=== PATIENT | female | born 1965 | race Two or more races ===

== ENCOUNTER 2022-12-28 17:42 | Emergency (ER) | payer OTHER ==
[~2022-12-28] VITALS: Ht 157.5 cm; Wt 63.0 kg
--- NOTE | 2022-12-28 17:55 | NUR ---
[id number] home, called therapist voicing suicidal ideation. admits to ETOH and taking prescribed anxiety meds. PLACED IN BED, AAOX4, CALM- COOPERATIVE, DENIES HURTING HERSELF, NO SI. WILL CONTINUE TO MONITOR.
--- NOTE | 2022-12-28 18:00 | NUR ---
ASSEMBLER CARDS AND ANNOUNCEMENTS.AT BEDSIDE
--- NOTE | 2022-12-28 18:15 | NUR ---
REQUEST TO FAX HOLD TO [phone] IF 0684 HOLD IS COMPLETED & SUBMITTED BY PD.
--- NOTE | 2022-12-28 18:25 | NUR ---
SWAB FOR COVID19 SENT TO LAB
--- NOTE | 2022-12-28 18:45 | NUR ---
urine sample obtained sent to lab
--- NOTE | 2022-12-28 18:47 | NUR ---
PATIENT ON HOLD 5150 DANGER TO SELF- FORMS FILLED AND SIGNED BY [employer] OFFICER.
[2022-12-28 18:54] LABS: CALCIUM, SERUM 9.6 mg/dL (8.5-10.1); CREATININE 0.7 mg/dL (0.6-1.3); POTASSIUM 3.2 mmol/L (3.5-5.1)
[2022-12-28 19:01] LABS: ALBUMIN 4.3 g/dL (3.4-5.0); BILIRUBIN,DIRECT 0.1 mg/dL (0.0-0.2); BILIRUBIN,TOTAL 0.2 mg/dL (0.2-1.0); TOTAL PROTEIN, SERUM 8.8 g/dL (6.4-8.2)
[2022-12-28 19:20] LABS: BILIRUBIN,URINE NEGATIVE (NEGATIVE); COLOR,URINE YELLOW (YELLOW); LEUKOCYTE ESTERASE ,URINE NEGATIVE (NEGATIVE); NITRITE, URINE NEGATIVE (NEGATIVE); PH,URINE 6.5 (5.0-8.0); PROTEIN,URINE NEGATIVE (NEGATIVE); UGLUCOSE NEGATIVE (NEGATIVE); UROBILINOGEN,URINE 0.2 EU/dL (0.2)
[2022-12-28] MEDS ORDERED: POTASSIUM CHLORIDE 20 MEQ POWDER PACKET ONE (19:28)
[2022-12-28] MEDS ORDERED: POTASSIUM CHLORIDE 20 MEQ POWDER PACKET PO ONE (19:30)
[2022-12-28 20:09] LABS: BACTERIA,URINE None seen /HPF (None Seen); WBC,URINE 0-2 /HPF (0-3)
[2022-12-28 20:19] LABS: BASOPHILS % (AUTO) 0.7 % (0.0-2.0); EOSINOPHILS % (AUTO) 2.3 % (0.0-6.0); HEMATOCRIT 43 % (33-45); HEMOGLOBIN 14.3 g/dL (11.5-14.8); LYMPHOCYTES # (AUTO) 2.6 K/uL (0.8-4.8); LYMPHOCYTES % (AUTO) 37.2 % (20.0-44.0); MEAN CORPUSCULAR HGB CONC 33 g/dl (31.0-36.0); MEAN CORPUSCULAR VOLUME 91 fL (82-100); MONOCYTES # (AUTO) 0.5 K/uL (0.1-1.30); MONOCYTES % (AUTO) 7.1 % (2.0-12.0); NEUTROPHILS # (AUTO) 3.7 K/uL (1.8-8.9); NEUTROPHILS % (AUTO) 52.7 % (43.0-81.0); PLATELET COUNT (AUTO) 208 K/uL (150-450); RED BLOOD CELL COUNT(AUTO) 4.75 MIL/uL (4.0-5.2); WHITE BLOOD COUNT (AUTO) 7.1 K/uL (4.3-11.0)
--- NOTE | 2022-12-28 23:30 | NUR ---
RECEIVED PATIENT ASLEEP BUT AROUSABLE. PATIENT'S VITALS WITHIN NORMAL LIMITS. STILL PLACED ON 5150 HOLD.
--- NOTE | 2022-12-29 03:40 | NUR ---
PT AMBULATED TO RESTROOM; VOIDED X1
--- NOTE | 2022-12-29 05:33 | NUR ---
CRISIS CARROTING MACHINE OPERATOR, Henri SANCHEZ/ MOP MACHINE OPERATOR AT BEDSIDE
--- NOTE | 2022-12-29 07:17 | NUR ---
PT OK TO DISCHARGE PER DR PHAN. Patient discharged to home in stable condition. Written and verbal after care instructions given. Patient verbalizes understanding of instruction.Patient is awake and alert to self, day, and place. PT ambulatory with a steady gait
[2022-12-29 07:18] VITALS: BP 111/76
== END 2022-12-29 07:19 | disposition home or self-care (01) ==
LOC: ER 17:54
DX: R45.851 Suicidal ideations (principal); I10 Essential (primary) hypertension; F32.A Depression, unspecified; Z20.822 Contact with and (suspected) exposure to COVID-19
CPT/HCPCS: 99285; 85025; 80048; 80076; 81001; 36415 ×2; 87426; 80143; 80320 ×2; 80307; C9803; G0480